=== PATIENT | male | born 1980 | race Hispanic/Latino ===

== ENCOUNTER 2018-10-21 16:31 | Emergency (ER) | payer SELFPAY ==
[2018-10-21 16:44] VITALS: BP 132/73
[2018-10-21] MEDS ORDERED: Bacitracin/Neomycin/Polymyxin B Oint 0.9 GM U/D Packet TOP ONE (16:53)
--- NOTE | 2018-10-21 16:53 | EDM.PDOC ---
ED HPI GENERAL MEDICAL PROBLEM - General Chief Complaint: Upper Extremity Injury/Pain Stated Complaint: finger injury Time Seen by Provider: 10/21/18 16:35 Source of Information: Reports: Patient, Old Records ([facility] EMR. No paper hospital chart available.) History Limitations: Reports: No Limitations - History of Present Illness INITIAL COMMENTS - FREE TEXT/NARRATIVE: The patient drove himself to the emergency room for evaluation of superficial lacerations and bilateral 7/10 hand pain with patient chronically exposed to chemicals, etc. He denies any acute injury, foreign body, etc. however he has not been wearing protective gloves while working. He has not taken any medications for his symptoms to this point. The patient also denies any recent fever, cough, wheezing, dyspnea, etc.. No recent history of abdominal pain, heartburn, nausea, diarrhea, melena, gross hematochezia, or any food intolerance , including fatty foods, etc.. The patient denies any chest pain/pressure, heart flutter, dizziness, orthostasis, orthopnea, diaphoresis, paresthesias, recent decreased exercise tolerance, or any other anginal-type symptoms. His symptoms have been present for the last several days. Onset: Gradual Duration: Day(s): (As above), Constant, Getting Worse Location: Reports: Upper Extremity, Left, Upper Extremity, Right. Denies: Head , Face, Neck, Chest, Abdomen, Back, Pelvis, Radiates to Quality: Reports: Ache, Sharp Severity: Moderate Improves with: Reports: None Worsens with: Reports: None Context: Reports: Other (As above). 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 Musculoskeletal History: Reports: Arthritis, Osteoarthritis. Denies: Fracture Neurological History: Reports: Headaches, Chronic, Migraines Psychiatric History: Reports: Anxiety, Depression Endocrine/Metabolic History: Reports: Diabetes, Type II, Other (See Below). Denies: IDDM Other Endocrine/Metabolic History: He stopped taking his medications in late 2018. 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 ED EXAM, GENERAL - Physical Exam Exam: See Below Exam Limited By: No Limitations General Appearance: Alert, WD/WN, No Apparent Distress, Anxious (Mild) Head: Atraumatic, Normocephalic Neck: Normal Inspection, Supple, Non-Tender, Full Range of Motion. No: Lymphadenopathy (L), Lymphadenopathy (R), Thyromegaly Respiratory/Chest: No Respiratory Distress, Lungs Clear, Normal Breath Sounds, No Accessory Muscle Use, Chest Non-Tender. No: Pleural Rub, Retractions Cardiovascular: Normal Peripheral Pulses, Regular Rate, Rhythm, No Edema, No Gallop, No JVD, No Murmur, No Rub. No: Gallop/S3, Gallop/S4, Friction Rub Peripheral Pulses: 2+: Radial (L), Radial (R) GI/Abdominal: Normal Bowel Sounds, Soft, Non-Tender, No Organomegaly, No Distention, No Abnormal Bruit, No Mass. No: Guarding (Male) Exam: Deferred Rectal (Males) Exam: Deferred Back Exam: Normal Inspection, Full Range of Motion. No: CVA Tenderness (L), CVA Tenderness (R), Muscle Spasm Extremities: Normal Range of Motion, Normal Capillary Refill, Other (Extremely dry and cracked hands bilaterally with moderate osteoarthritic changes but no acute joint inflammation. 1 cm in length beginning abscess over the palmar aspect of the base of the second left proximal phalanx with no lymphangitis, foreign body, etc. however some mild purulent drainage. Additional 1 cm superficial lacerations over the PIP joints of digit #1 and 3 of the right hand) Neurological: Alert, Oriented, CN II-XII Intact, Normal Cognition, Normal Gait, Normal Reflexes, No Motor/Sensory Deficits Psychiatric: Anxious (Mild), Depressed Mood (Borderline) Skin Exam: Wound/Incision (As above). No: Diaphoretic, Erythema, Lymphangitis Lymphatic: No Adenopathy Course - Vital Signs Last Recorded V/S: Last Vital Signs Temp 36.8 C 10/21/18 16:43 Pulse 72 10/21/18 16:43 Resp 18 10/21/18 16:43 BP 132/73 10/21/18 16:43 Pulse Ox 97 10/21/18 16:43 Vital Signs - 24 hr 10/21/18 16:43 Temperature [ 36.8 C Oral] Pulse, 72 Peripheral [ Left Pulse Oximetry] Respiratory 18 Rate Blood Pressure 132/73 [Right Upper Arm] O2 Sat by Pulse 97 Oximetry - Orders/Labs/Meds Orders: Active Orders 24 hr Category Date Time Status Vaccines to be Administered [RC] PER UNIT ROUTINE Care 10/21/18 16:56 Active CULTURE WOUND + SMEAR [RM] Stat Lab 10/21/18 17:00 Results Obtain Past Medical Record [OM.PC] Routine Oth 10/21/18 16:53 Active Labs: Specimen collected from the second left finger for culture and sensitivity and Gram stain Meds: Medications Discontinued Medications Generic Name Dose Route Start Last Admin Trade Name Freq PRN Reason Stop Dose Admin Diphtheria/Tetanus/Acell Pertussis 0.5 ml 10/21/18 16:56 10/21/18 17:28 Adacel IM 10/21/18 16:57 0.5 ml .ONCE ONE Administration Neomycin/Polymyxin/Bacitracin 3 each 10/21/18 16:53 10/21/18 17:07 Triple Antibiotic Oint TOP 10/21/18 16:54 3 each ONETIME ONE Administration - Radiology Interpretation Free Text/Narrative:: None Departure - Departure Time of Disposition: 17:45 Disposition: Home, Self-Care 01 Condition: Good Clinical Impression: Mixed anxiety depressive disorder, Tobacco abuse counseling Cellulitis Qualifiers: Site of cellulitis: extremity Site of cellulitis of extremity: finger Laterality: left Qualified Code(s): L03.012 - Cellulitis of left finger Diabetes mellitus Qualifiers: Diabetes mellitus type: type 2 Diabetes mellitus skilled nursing insulin use: without intermediate school teacher use Diabetes mellitus complication status: without complication Qualified Code(s): E11.9 - Type 2 diabetes mellitus without complications Hypertension Qualifiers: Hypertension type: essential hypertension Qualified Code(s): I10 - Essential ( primary) hypertension Osteoarthritis Qualifiers: Osteoarthritis location: multiple joints Osteoarthritis type: primary Qualified Code(s): M15.0 - Primary generalized (osteo)arthritis - Discharge Information *PRESCRIPTION DRUG MONITORING PROGRAM REVIEWED*: Not Applicable *COPY OF PRESCRIPTION DRUG MONITORING REPORT IN PATIENT NEERAJ: Not Applicable Prescriptions: Sulfamethoxazole/Trimethoprim [Bactrim Ds Tablet] 1 each PO BIDMEALS #20 tablet Instructions: Health Risks of Smoking, Cellulitis, Adult, [id number] Referrals: PCP,Unknown [Ordering Only Provider] - Forms: ED Department Discharge, ED Return to Work/School Form Additional Instructions: 1. Followup with your regular provider in 10-14 days as directed. Bring these discharge instructions with you to that visit. 2. Tylenol 650 mg by mouth every 4 hours and/or OTC ibuprofen 2-3 tabs by mouth every 6 hours with food as directed./needed. You may stagger these medications for 48-72 hours only, which essentially means that you are receiving a pain medication about every 2 hours. 3. Antibacterial soap wash/soak with subsequent antibacterial dressing such as Neosporin, etc. as directed 2 times per day until the wound or laceration site completely heals. Keep the area clean and dry with activity restrictions as discussed. Never use hydrogen peroxide for wound care. 4. Wear protective gloves, etc. while working with, etc. 5. Work excuse- See Form 6. Stop all tobacco use ERLIN as directed/per provided information and consider contacting Quit LIne, etc.. 7. Immediately after this visit verify that your cellular telephone's voicemail has been activated and is empty. Also verify that your home telephone 's answering machine is operating properly and has space to receive messages. Note that it is sometimes necessary for us to be able to contact you at a later date to discuss your medical care. 8. Please remember that we are ALWAYS here for you and want to answer any questions you may have. Feel free to call the hospital any time and we call you back ERLIN. 9. Discuss your previous hypertension and diabetes with consideration of further blood work, etc. and reinitiation of the previous medical therapy depending on findings from your primary provider at follow-up 10. Hand moisturizer including bag balm on a regular basis as discussed. - Problem List & Annotations (1) Cellulitis SNOMED Code(s): 796608754 Code(s): L03.90 - CELLULITIS, UNSPECIFIED Status: Acute Priority: High Onset Date: ~10/21/18 Annotation/Comment:: Patient to be started on Bactrim DS. Wound care, skin care, etc. extensively discussed. Wound specimen collected as above. Work excuse provided. Qualifiers: Site of cellulitis: extremity Site of cellulitis of extremity: finger Laterality: left Qualified Code(s): L03.012 - Cellulitis of left finger (2) Diabetes mellitus SNOMED Code(s): 43885795 Code(s): E11.9 - TYPE 2 DIABETES MELLITUS WITHOUT COMPLICATIONS Status: Chronic Priority: Medium Annotation/Comment:: Patient strongly encouraged to follow-up with regular provider for further routine healthcare, including possible reinitiation of his medications for his diabetes, hypertension, etc. Qualifiers: Diabetes mellitus type: type 2 Diabetes mellitus intermediate school teacher insulin use: without intermediate school teacher use Diabetes mellitus complication status: without complication Qualified Code(s): E11.9 - Type 2 diabetes mellitus without complications (3) Hypertension SNOMED Code(s): 41757733 Code(s): I10 - ESSENTIAL (PRIMARY) HYPERTENSION Status: Chronic Priority : Medium Annotation/Comment:: As above Qualifiers: Hypertension type: essential hypertension Qualified Code(s): I10 - Essential (primary) hypertension (4) Mixed anxiety depressive disorder SNOMED Code(s): 346785482 Code(s): F41.8 - OTHER SPECIFIED ANXIETY DISORDERS Status: Chronic Priority: Medium Annotation/Comment:: Stable by history. Continue to observe closely by his regular provider. (5) Osteoarthritis SNOMED Code(s): 297645266 Code(s): M19.90 - UNSPECIFIED OSTEOARTHRITIS, UNSPECIFIED SITE Status: Chronic Priority: Medium Annotation/Comment:: Stable by history Qualifiers: Osteoarthritis location: multiple joints Osteoarthritis type: primary Qualified Code(s): M15.0 - Primary generalized (osteo)arthritis (6) Tobacco abuse counseling SNOMED Code(s): 791483898, 811479351, 609177739 Code(s): Z71.6 - TOBACCO ABUSE COUNSELING Status: Chronic Priority: Medium Annotation/Comment:: Tobacco cessation strongly encouraged with information provided at discharge. - Problem List Review Problem List Initiated/Reviewed/Updated: Yes - My Orders Last 24 Hours: My Active Orders 10/21/18 16:53 Obtain Past Medical Record [OM.PC] Routine 10/21/18 16:56 Vaccines to be Administered [RC] PER UNIT ROUTINE 10/21/18 17:00 CULTURE WOUND + SMEAR [RM] Stat - Assessment/Plan Last 24 Hours: My Active Orders 10/21/18 16:53 Obtain Past Medical Record [OM.PC] Routine 10/21/18 16:56 Vaccines to be Administered [RC] PER UNIT ROUTINE 10/21/18 17:00 CULTURE WOUND + SMEAR [RM] Stat Assessment:: As above Plan: As above. Extensive precautions were given to the patient, who is in agreement with the treatment plan. See Patient Instructions for further treatment and plan.
[2018-10-21] MEDS ORDERED: Diphtheria,Pertussis(Acell),Tetanus Vaccine 0.5 ML SDV IM ONE (16:56)
== END 2018-10-21 17:45 | disposition home or self-care (01) ==
LOC: LL.ED 16:31
DX: S61.011A Laceration without foreign body of right thumb without damage to nail, initial encounter (principal); S61.212A Laceration without foreign body of right middle finger without damage to nail, initial encounter; L03.012 Cellulitis of left finger; Z23 Encounter for immunization; E11.9 Type 2 diabetes mellitus without complications; M15.0 Primary generalized (osteo)arthritis; F41.8 Other specified anxiety disorders; Z71.6 Tobacco abuse counseling; F17.210 Nicotine dependence, cigarettes, uncomplicated; I10 Essential (primary) hypertension; Z88.6 Allergy status to analgesic agent; X58.XXXA Exposure to other specified factors, initial encounter
CPT/HCPCS: 87070; 87077; 87186; 87205; 90471; 90715; 99283